=== PATIENT | male | born 1940 | race Caucasian/White ===

== ENCOUNTER 2017-04-15 18:10 | Observation (INO) | payer MEDICARE, OTHER ==
[~2017-04-15] VITALS: Ht 182.9 cm; Wt 81.3 kg
--- NOTE | 2017-04-15 18:16 | ED.REPORT ---
HPI-Chest Pain 40 and Over Date of Service Apr 15, 2017 ED Provider: Dr. Willy Guo The patient is a 76 year old male who presents to the ED due to a droopy left face, tingling and numbness down his left arm four days ago. Yesterday, he had chest pain, and states that the sensation was muscular. Today, he had difficulty walking due to pain in between his shoulder blades. Pt received 4 doses of nitro en route with reduction in pain from 8/10 to 3/10. Today he had trouble walking due to "soreness" in between his shoulder blades. Significant hx includes pacer in 2007, replaced 2015 for bradycardia. BP is 126/74 Nursing Notes Stated Complaint: CHEST PAIN Nursing Notes Reviewed: Yes Allergies: Coded Allergies: Penicillins (Unverified Allergy, Unknown, 04/15/17) Uncoded Allergies: PCN (Allergy, Unknown, 04/15/17) General Time Seen by MD: 18:15 Chief Complaint Other (left facial droop) Hx Obtained From: Patient Arrived By: Walk-in Sudden in Onset?: Yes Onset Occurred: 4 days ago Context of Onset: Light exertion Symptom Duration: Since onset Location: : Substernal Quality: Painful Radiation: : Arm left Severity: Current: No pain currently Severity: Maximum: Mild Recent Healthcare: No recent doctor visit, No recent hospitalization Similar Sx Previous: No Past Medical History Past Surgical History pacer in 2007 replaced 2016 for bradycardia Smoking History Unknown if Ever Smoker Social History Other Social History: Local resident Ambulatory Status Independent Review of Systems Constitutional: Denies: Chills, Fever Musculoskeletal: Reports: Back pain, Extremity pain Neurologic: Reports: Numbness, Problem walking, Denies: Change LOC Complete sys rev & neg: except as marked. Physical Exam Initial Vital Signs Vital Signs (First) Date Time Temp Pulse Resp B/P Pulse Ox O2 Delivery O2 Flow Rate FiO2 04/15/17 18:22 36.7 70 18 126/74 98 Room Air Initial VS: Reviewed General/Constitutional: Awake, Alert, No acute distress, Cooperative, Not toxic appearing Respiratory / Chest: Atraumatic, Breath sounds NL, Breath sounds = bilat, No respiratory distress Cardiovascular: No gallop, No murmurs, No rubs atrial paced Abdomen: Atraumatic, Soft, Non-tender Lower Extremity / Pelvis / MS: Atraumatic, Inspection NL, Full range of motion , No deformity Skin: Atraumatic, Color NL, No rash Head / Eyes: Atraumatic, Normocephalic, PERRL Upper Extremity / MS: Atraumatic, Inspection NL, Full range of motion, No deformity Wrist / Hand: Atraumatic, Inspection NL, Full range of motion, No deformity Ankle / Foot: Atraumatic, Inspection NL, Full range of motion, No deformity Interpretation & Diagnostics Interpretation & Diagnostics: ANGIOGRAPHY CT IMPRESSION: 1. Acute disease is not identified. 2. No pulmonary embolus, lung infiltrate or effusion, or aneurysm or dissection of the aorta is identified. 3. There is a 4.4 mm nodule in the anteroinferior aspect of the right lower lobe. Followup should be according to Fleischner criteria. The Fleischner Society criteria for SOLID lung nodule followup are: Nodule size (mm)Low-risk patientHigh-risk [id number] follow-up neededFollow-up at 12 mo; if no change, no further follow-up>[id number] CT at 12 mo; if no change, no further follow-up needed.Initial follow-up CT at 6-12 mo, then 18-24 mo if no change. >6-8Initial follow-up CT at 6-12 mo, then 18-24 mo if no change. Initial follow-up CT at 3-6 mo, then 9-12 mo and 24 mo if no change. >8Follow-up CT at 3, 9, 24 mo. Or PET and/or biopsy.Same as for low-risk pts. Dictated by: Freddy David M.D. on 04/15/2017 at 20:30 Approved by: Freddy David M.D. on 04/15/2017 at 20:36 Lab Results Interpretation Result Diagram: 04/15/17 1842 04/15/17 1842 Test 04/15/17 18:42 04/15/17 21:12 White Blood Count 7.4th/mm3 (3.8-10.1) Red Blood Count 3.65mil/mm3 (4.40-5.80) Hemoglobin 12.4g/dL (13.8-17.2) Hematocrit 36.4% (41.0-50.0) Mean Corpuscular Volume 99.7fL (81-100) Mean Corpuscular Hemoglobin 34.0pg (27.0-35.0) Mean Corpuscular Hemoglobin Concent 34.1% (32.0-37.0) Red Cell Distribution Width 11.5% (12.3-15.4) Platelet Count 187bil/L (150-400) Neutrophils (%) (Auto) 72.6% (40-74) Lymphocytes (%) (Auto) 15.0% (14-46) Monocytes (%) (Auto) 11.5% (4-12) Eosinophils (%) (Auto) 0.3% (0-5) Basophils (%) (Auto) 0.3% (0-3) Prothrombin Time 11.9sec (8.1-12.5) Prothromb Time International Ratio 1.11ratio D-Dimer 1.16mg/L FEU (<0.50) Sodium Level 139mEq/L (134-144) Potassium Level 4.0mEq/L (3.5-5.2) Chloride Level 102mEq/L (97-108) Carbon Dioxide Level 20mmol/L (18-29) Blood Urea Nitrogen 22mg/dL (8-27) Creatinine 0.84mg/dL (0.76-1.27) Estimat Glomerular Filtration Rate 94mL/min (>59) Glucose Level 87mg/dL (60-99) Calcium Level 8.9mg/dL (8.5-10.1) Magnesium Level 1.8mg/dL (1.6-2.6) Total Bilirubin 0.8mg/dL (0.0-1.2) Aspartate Amino Transf (AST/SGOT) 37U/L (0-50) Alanine Aminotransferase (ALT/SGPT) 39U/L (0-44) Alkaline Phosphatase 72U/L (25-160) Pro-B-Type Natriuretic Peptide 274.5pg/mL (0-486) Total Protein 6.8g/dL (6.4-8.4) Albumin 3.4g/dL (3.4-5.0) Thyroid Stimulating Hormone (TSH) 1.800uIU/mL (0.450-4.500) Hold Katz Top Tube Received (Received) Troponin T 0.013ug/L (0.0-0.011) Lab Results Interpretation: Initial Troponin 0.011 2nd Troponin 0.013 ECG Interpretation ECG Interpretation: atrial paced (rate 70) no ST elevation [place] no depression Interpreted by: ED physician X-Ray Chest Interpretation Chest Xray Interpretation: IMPRESSION: Acute disease is not seen in the upright portable chest. Dictated by: Freddy David M.D. on 04/15/2017 at 18:49 Approved by: Freddy David M.D. on 04/15/2017 at 18:50 View: Portable Interpretation / Wet Read by: Interpret - Radiologist CT Head Interpretation IMPRESSION: No abnormality is noted intracranially. Mucosal thickening and mucous is present in the left maxillary sinus. Dictated by: Freddy David M.D. on 04/15/2017 at 19:30 Approved by: Freddy David M.D. on 04/15/2017 at 19:33 Re-Eval/Medical Decision Med Decision/Clinical Course 1930: Pt is still having pain. IV changed to AC. Plan for pain medicine and nitrates. 2100: Plan for admission, heparin, and stress test. 2148: Consultation with Dr. Menendez. Troponin is creeping up (0.011 to 0.013) Dx of unstable angina. Pain adequately treated with nitrates and analgesia. Troponin is trending up. Time of Eval: 19:31 Patient Status: Condition unchanged Re-Evaluation/Progress Note: Per nurse, pt is still having pain. IV changed to AC. Plan for pain medicine and nitrates. Time of Eval: 21:00 Re-Evaluation/Progress Note: Pt rechecked. Informed pt of negative CT and x-ray. Plan for admission, heparin, and stress test. Consultation : Referral / Consult Name: Saji Menendez MD Consulted With: Hospitalist Call Returned at: 21:49 Soc Analyst: Agrees with eval, Agrees with plan Note: Case discussed. Counseled Regarding: Diagnosis, Lab results, Need for admission Discharge & Departure Primary Impression: Unstable angina Disposition: ADMITTED TO HOSPITAL Discharge Condition All VS Reviewed: Yes Condition: Stable Referrals: [facility] Except Billable Proc Time Spent: 30-74 minutes (33) Services Performed: Patient management by me, Time spent at bedside, Reviewing test results, Reviewing imaging, Discussing patient care, Documentation in record Scribe Attestation Portion of this note were transcribed by Fernanda Ross. I, Dr. Guo, personally performed the history, physical exam, and medical decision-making: I reviewed and confirmed the accuracy for the information in the transcribed note. Signed by: ashlie Lawton, 04/15/17 2200 copies to: [facility] Willy Guo DO Apr 15, 2017 18:15 Fernanda Ross Apr 15, 2017 18:56
[2017-04-15 18:22] VITALS: BP 126/74; PULSE 70; RESP 18; O2SAT 98
[2017-04-15 18:48] LABS: BASOPHILS % (AUTO) 0.3 % (0-3); EOSINOPHILS % (AUTO) 0.3 % (0-5); MONOCYTES % (AUTO) 11.5 % (4-12); Mean Corpuscular Volume 99.7 fL (81-100); NEUTROPHILS % (AUTO) 72.6 % (40-74); Platelet Count 187 bil/L (150-400)
--- NOTE | 2017-04-15 18:52 | DRSVH ---
PROCEDURE: X-RAY CHEST ONE VIEW, PORTABLE ([id number]) INDICATIONS: chest pain TECHNIQUE: One view of the chest was acquired. COMPARISON: [facility], , CHEST 2 VIEW, 11/08/2010, 14:50. FINDINGS: Surgical changes and devices: Triple lead pacemaker is present from the right side and cardiac monito r leads are seen over the chest. Lungs and pleura: No pleural effusions or pneumothorax. Lungs are clear. Mediastinum: Mediastinal contours appear normal. The aorta is elongated. Heart size is normal. Bones and chest wall: No suspicious bony lesions. Overlying soft tissues appear unremarkable. IMPRESSION: Acute disease is not seen in the upright portable chest. Dictated by: Freddy David M.D. on 04/15/2017 at 18:49 Approved by: Freddy David M.D. on 04/15/2017 at 18:50
[2017-04-15 19:07] LABS: INR 1.11 ratio
[2017-04-15 19:12] LABS: TROPONIN T 0.011 ug/L (0.0-0.011)
[2017-04-15 19:23] LABS: Magnesium 1.8 mg/dL (1.6-2.6)
[2017-04-15] MEDS ORDERED: Nitroglycerin 2% 1 Gm Ointment TOPICAL ONE (19:30)
[2017-04-15] MEDS ORDERED: fentaNYL-PF 50 mCg/mL 2 mL Inj IVPUSH ONE (19:30)
--- NOTE | 2017-04-15 19:35 | DRSVH ---
PROCEDURE: CT BRAIN WITHOUT CONTRAST ([id number]) INDICATIONS: left facial droop, left arm weak TECHNIQUE: Noncontrast 4.5 mm thick angled axial sections acquired from the foramen magnum to the vertex, with c oronal reformats. COMPARISON: None. FINDINGS: Image quality: Excellent. CSF spaces: Basal cisterns are patent. No extra-axial fluid collections. The ventricles are symmet rachael in size and shape. Brain: No intracranial bleeds or masses. There is cerebral volume loss for age, with resultant vent ricular and sulcal prominence. There are periventricular and deep white matter chronic small vessel ischemic changes. There is intracranial internal carotid artery atherosclerosis. Skull and face: Calvarium and visualized facial bones appear intact, without suspicious lesions. Sinuses: Visualized sinuses and mastoids are clear except for moderate mucosal thickening and mucous in the left maxillary sinus.. IMPRESSION: No abnormality is noted intracranially. Mucosal thickening and mucous is present in the left maxillary sinus. Dictated by: Freddy David M.D. on 04/15/2017 at 19:30 Approved by: Freddy David M.D. on 04/15/2017 at 19:33
[2017-04-15 20:00] VITALS: BP 126/77; PULSE 70; RESP 9; O2SAT 98
--- NOTE | 2017-04-15 20:38 | DRSVH ---
PROCEDURE: CT ANGIO CHEST PULMONARY EMBOLISM ([id number]) INDICATIONS: chest pain, short of breath TECHNIQUE: After the administration of intravenous contrast, 2 mm thick sections acquired from the pulmonary api tai to the posterior costophrenic angles. 3-dimensional maximum intensity projection (MIP) coronal a nd sagittal reformats were then acquired through the thorax. For radiation dose reduction, the follo wing was used: automated exposure control, adjustment of mA and/or kV according to patient size. COMPARISON: [facility], CR, XR CHEST 1VW (PORTABLE), 04/15/2017, 18:13. FINDINGS: Image quality: Excellent. Pulmonary arteries: Pulmonary arteries are normal in size, and demonstrate no intraluminal filling d efects to suggest central pulmonary embolism. Lungs and pleura: Lungs are clear. No pleural effusions or pneumothorax. Central and peripheral ai rways are patent. There is a 4 mm nodule anteroinferiorly in the right lower lobe seen on series 5 im age 35. Lungs are otherwise clear. Mediastinum: Heart size is normal, without pericardial effusion. No mediastinal or hilar adenopathy . Thoracic aorta is normal in caliber and enhancement. Esophagus is normal in caliber, without hiat al hernia. Bones and chest wall: No suspicious bony lesions. Ribs and thoracic spine appear intact throughout. Thyroid gland is within normal limits. No axillary or supraclavicular adenopathy. Abdomen: Visualized upper abdominal solid organs appear normal in the early arterial phase of enhanc ement. IMPRESSION: 1. Acute disease is not identified. 2. No pulmonary embolus, lung infiltrate or effusion, or aneurysm or dissection of the aorta is ident ified. 3. There is a 4.4 mm nodule in the anteroinferior aspect of the right lower lobe. Followup should be according to Fleischner criteria. The Fleischner Society criteria for SOLID lung nodule followup are: Nodule size (mm)Low-risk patientHigh-risk [id number] follow-up neededFollow-up at 12 mo; if no parker e, no further follow-up>[id number] CT at 12 mo; if no change, no further follow-up needed.Initial f ollow-up CT at 6-12 mo, then 18-24 mo if no change. >6-8Initial follow-up CT at 6-12 mo, then 18-24 mo if no change. Initial follow-up CT at 3-6 mo, then 9-12 mo and 24 mo if no change. >8Follow-up CT at 3, 9, 24 mo. Or PET and/or biopsy.Same as for low-risk pts. Dictated by: Freddy David M.D. on 04/15/2017 at 20:30 Approved by: Freddy David M.D. on 04/15/2017 at 20:36
[2017-04-15] MEDS ORDERED: Heparin 5,000 Unit/mL Inj IVPUSH PRN ×2 (20:55→22:05)
[2017-04-15] MEDS ORDERED: Heparin 25K Unit/500mL 0.45 NS 25,000 UNIT in IV Premix 1 EACH IV SCH ×2 (20:55→22:05)
[2017-04-15] MEDS ORDERED: Heparin 5,000 Unit/mL Inj IVPUSH ONE (20:55)
[2017-04-15] MEDS ORDERED: Polyethylene Glycol (PEG) 17 Gm Powder PO PRN (21:45)
[2017-04-15] MEDS ORDERED: Atropine 1 mg/10 mL (Code) Syringe IVPUSH PRN (21:45)
[2017-04-15] MEDS ORDERED: Alum-Mag Hydrox-Simeth 30 mL Suspension PO PRN (21:45)
[2017-04-15] MEDS ORDERED: Ondansetron 2 mg/mL 2 mL Inj IVPUSH PRN (21:45)
[2017-04-15] MEDS ORDERED: Senna-Docusate 8.6-50 mg Tablet PO PRN (21:45)
[2017-04-15] MEDS ORDERED: HYDROcodone-APAP 5-325 mg Tablet PO PRN (22:10)
--- NOTE | 2017-04-15 22:36 | PCM.HPMED ---
Subjective Date of Service Apr 15, 2017 Primary Provider: Admitting Physician: Saji Menendez MD Primary Care Physician: Jane Watts Attending Physician: Saji Menendez MD Chief Complaint: CP History of Present Illness: 76 yo M with history of SSS s/p pacemaker presents today for dull substernal CP that radiates to his left arm and also sharp pain between his scapula x 3 days. Patient reports that he was out doing yard work when he noted the pain, this occurred for about 2-3 minutes and then went away with rest. He states he went to the and ED, but the wait was too long so he went home. Pt reports that the pain occurred again the following day when he was out working in the yard, but was more brief. He also had an episode later that night that was associated with diaphoresis but was also very brief. He came into the ED today again due to increasing radiation of his symptoms to his left forearm and also his left jaw and also increasing pain between his scapula which she describes as more sharp and more likely related to his hard labor. Throughout these episodes he denies any associated nausea, vomiting, shortness of breath, OVIEDO, headache, lethargy, or dizziness. He does endorse some bloating and constipation but has not noted any abdominal pain. He has had a mild chronic cough which occasionally does worsen the pain in his scapula. He has never had chest pain like this before and denies any orthopnea, PND, or history of ZHOU. En route to the ED today, he had a full dose of Aspirin and 4 doses of nitro SL that did improve his dull substernal CP. His pi/senior research associate is Dr. Ernestina Preciado at [place] In the ED, he was noted to have stable, normal vital signs Initial EKG showed atrial paced rhythm with rate of [address] changes As initial CBC and CMP were benign and initial troponin was 0.011 which did increase to 0.013 about 4 hours later He had a brain CT that did not show any acute disease and a CTA which did not show any pulmonary emboli but did show a right lower lobe nodule With his rising troponins and suspicious presentation, heparin drip started in the ED and is admitted for further observation and workup Review of Systems: Comprehensive review of systems was conducted with the patient and found to be negative except as noted above in HPI. Allergies Coded Allergies: Penicillins (Unverified Allergy, Unknown, 04/15/17) Uncoded Allergies: PCN (Allergy, Unknown, 04/15/17) Home Medications asa 81 mag 250mg daily ibuprofen prn pantoprazole PMH Inguinal hernia SSS s/p pacemaker BPH Surgical History Pacemaker for SSS- 2007, then 2016. Cardiology is Ernestina Kramer in [place] Right inguinal hernia repaired 2016, left inguinal hernia in a long time ago. Anal spincterotomy turp cystoscopy 2010 colonoscopy yearly for polyps? 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 External ears without defect. PERRLA, EOMI Anicteric sclerae, moist conjunctivae, and no lid lag. Oropharynx free of erythema and cobble stoning with moist mucosa. Neck: Supple with full range of motion. No jugular venous distension noted Cardiovascular: Regular rate and rhythm soft systolic murmur, pacemaker at right upper chest Pulmonary: Mild rales noted on the right lower lobe, no crackles, wheezes, or rhonchi. Normal respiratory effort with no use of accessory muscles. Abdomen: Bowel tones present. Soft, nontender, nondistended. No hepatosplenomegaly or masses appreciated. MSK: No clubbing, cyanosis, edema, or lymphadenopathy appreciated. Cervical and thoracic paraspinal muscles mildly tender to palpation Skin: Normal temperature, turgor, and texture; no rash, ulcers, or subcutaneous nodules appreciated. Neurological: Cranial nerves grossly intact. Normal muscle strength, tone, and bulk. Reflexes, coordination, and sensory function within normal limits. Face symmetric Psychiatric: Normal mood and affect. Alert and oriented to person, place, and time. Pleasant and cooperative Lab and Diagnostics Result Diagram: 04/15/17 1842 04/15/171841 X-Rays, CTs and MRIs PROCEDURE: CT ANGIO CHEST PULMONARY EMBOLISM ([id number]) IMPRESSION: 1. Acute disease is not identified. 2. No pulmonary embolus, lung infiltrate or effusion, or aneurysm or dissection of the aorta is identified. 3. There is a 4.4 mm nodule in the anteroinferior aspect of the right lower lobe. Followup should be according to Fleischner criteria. The Fleischner Society criteria for SOLID lung nodule followup are: PROCEDURE: CT BRAIN WITHOUT CONTRAST ([id number]) IMPRESSION: No abnormality is noted intracranially. Mucosal thickening and mucous is present in the left maxillary sinus. PROCEDURE: X-RAY CHEST ONE VIEW, PORTABLE ([id number]) IMPRESSION: Acute disease is not seen in the upright portable chest. 12-lead ECG ECG Interpretation: atrial paced (rate 70) no ST elevation [place] no depression Interpreted by: ED physician Assessment & Plan 76 yo M with history of SSS s/p pacemaker presents today for dull substernal CP that radiates to his left arm and also sharp pain between his scapula x 3 days. Chest pain, POA Patient's presentation is suspicious for unstable angina versus NSTEMI. There appears to be a MSK component involved too, which is noted by his upper back pain between the scapula. EKG on admission showed atrial pacing at rate of [address] changes. Full dose aspirin and nitroglycerin given prior to admission We will place on telemetry for CV monitoring We will plan to trend troponins, which has slowly risen to 0.013 on admission We will continue patient's heparin drip Nitroglycerin sublingual and morphine prn chest pain Echo in the a.m. Exercise stress test planned Consider cardiology consultation Sick sinus syndrome status post pacemaker, POA Triple lead noted on chest x-ray. Rate has been stable We will continue baby aspirin daily Incidental lung nodule, POA As noted on CTA, 4.4 mm right lower lobe lung nodule Patient denies any history of lung nodules. Discussed with patient need to continue monitoring this on an outpatient basis Chronic GERD, POA We will continue his pantoprazole Tylenol as needed for fever/pain Zofran as needed for nausea Bowel regimen as needed for constipation CODE STATUS: Full resuscitation Patient is admitted under observation status with expected length of stay less than 2 midnights due to severity of presenting symptoms, risk of adverse event, and complexity of treatment plan. Pain Evaluation: Adequate Pain Control VTE Prophylaxis: Other (heparin drip) Resuscitation Status: CPR: Attempt Resuscitation Attending Statement The patient was seen and examined together with Dr. Topete on 04/15 and I agree with the history, exam and plan as outlined in the note above. Eugenio Topete DO Apr 15, 2017 21:31 Saji Menendez MD Apr 16, 2017 03:02
[2017-04-16] MEDS: Sodium Chloride LOK Flush 10 mL Syringe IVFLUSH SCH ×3 (00:30→16:52)
[2017-04-16] MEDS: 0.9% Sodium Chloride 1,000 ML IV SCH ×2 (01:03→10:14)
[2017-04-16 01:14] VITALS: BP 110/59; PULSE 70; RESP 18; O2SAT 98
[2017-04-16 01:45] VITALS: BP 111/69; PULSE 70; RESP 16; O2SAT 95
[2017-04-16] MEDS ORDERED: LORA10CA9 PO (03:10)
[2017-04-16] MEDS ORDERED: NPR500T PO (03:10)
[2017-04-16] MEDS ORDERED: ASPI-973 PO (03:10)
[2017-04-16] MEDS ORDERED: NITR0.4T6 SL (03:10)
[2017-04-16] MEDS ORDERED: IBUP100T7 PO (03:10)
[2017-04-16] MEDS ORDERED: CHOL100043 PO (03:10)
[2017-04-16] MEDS ORDERED: KEN1O TOP (03:10)
[2017-04-16] MEDS ORDERED: OMEP20CA11 PO (03:10)
[2017-04-16] MEDS ORDERED: FLUT9.9S16 NS (03:10)
[2017-04-16] MEDS ORDERED: MULT-666 PO (03:10)
[2017-04-16] MEDS ORDERED: CYAN500 PO (03:10)
[2017-04-16] MEDS ORDERED: CALC500T9 PO (03:10)
[2017-04-16] MEDS ORDERED: MAGN250T29 PO (03:10)
[2017-04-16] MEDS ORDERED: OMEG-38 PO (03:10)
[2017-04-16 04:36] LABS: Mean Corpuscular Hemoglobin 34.2 pg (27.0-35.0); Mean Corpuscular Volume 101.2 fL (81-100); Platelet Count 184 bil/L (150-400)
[2017-04-16 04:37] LABS: BASOPHILS % (AUTO) 0.3 % (0-3); MONOCYTES % (AUTO) 14.6 % (4-12); NEUTROPHILS % (AUTO) 62.6 % (40-74)
[2017-04-16 05:32] VITALS: PULSE 70
--- NOTE | 2017-04-16 06:18 | NUR ---
Admit Admitted to 1009 from ED. Able to ambulate on arrival without any noted issues. Tele APaced w/o c/o CP or discomfort. RA w/o SOB. Denies n/v or issues with PO intake prior to admit but currently NPO per orders. Voiding per urinal with urinary retention at times only noted issues. Heparin gtt initiated in ED infusing on arrival. NS initiated on arrival to floor per MD orders. Personal belongings at bedside per patient request. 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
[2017-04-16 08:00] VITALS: PULSE 70
[2017-04-16 10:00] VITALS: BP 115/65; PULSE 77; RESP 19; O2SAT 99
--- NOTE | 2017-04-16 12:41 | NUR ---
Social Work: Initial Assessment/Readiness for Discharge/Multi-Disciplinary Rounds D: EMR reviewed. Please see initial assessment linked to this note for additional details. Pt does not have a re-admit risk score assigned. Pt is a 76 y/o male admitted inpatient for left hip arthritis per H&P. HERO met with pt and spouse at bedside to conduct initial assessment. Pt was alert and oriented x3. SW explained role and wrote phone number on [employer]. SW provided "Your Discharge Planning Checklist" and encouraged pt to contact SW for any discharge planning needs that may arise after review of checklist. Pt has Medicare and . Pt's PCP is DIYA Lara Aas. Pt stated his son will provide transport home via POV or he may need to wait until 1700 for his daughter to pick him up - either way, pt will have transportation home and thinks his son will be able to pick him up. Per rounds, if pt's stress test is negative, pt will be medically stable for discharge today. Pt is independent with all ADLS and self-care at baseline. Pt drives. Pt does not own or use any DME. Pt lives a single-story home with 1 step to enter. Pt's capacity for self-care assessed - no concerns identified. Pt's son or daughter will provide transport home via POV today. A: Pt who is independent at baseline. Pt's capacity for self-care assessed - no concerns identified. P: Pt likely to discharge home with son or daughter via POV today. SW does not anticipate any further needs at discharge but will continue to follow for needs that may arise. GERMAN Billings Addendum: 04/16/17 at 1247 by SHORTY HAYNES Amended: Links added.
--- NOTE | 2017-04-16 15:59 | PCM.PNMED ---
Subjective Date of Service Apr 16, 2017 Subjective Patient reports some improvement with the chest pain however he still has the back pain radiating to his chest. This pain is reproducible with movement. Denies any cough or shortness of breath. Stress test today. Exam Vital Signs Vital Sign - Last Date Time Temp Pulse Resp B/P Pulse Ox O2 Delivery O2 Flow Rate FiO2 04/16/17 10:00 36.9 77 19 115/65 99 Room Air Intake and Output 04/15/17 04/15/17 04/16/17 Cumulative From/Thru 15:00 23:00 07:00 04/15/17 18:22 - 04/16/17 06:09 Intake Total 491 ml 491 ml Output Total 900 ml 900 ml Balance -409 ml -409 ml Intake Oral 0 ml 0 ml IV Total 491 ml 491 ml Output Urine Total 900 ml 900 ml # Bowel Movements 0 0 Exam General: Well-developed male who appears in no acute distress HEENT: Normocephalic, atraumatic. External ears without defect. PERRLA, EOMI Anicteric sclerae, moist conjunctivae, and no lid lag. Oropharynx free of erythema and cobble stoning with moist mucosa. Neck: Supple with full range of motion. No jugular venous distension noted Cardiovascular: Regular rate and rhythm soft systolic murmur, pacemaker at right upper chest Pulmonary: Mild rales noted on the right lower lobe, no crackles, wheezes, or rhonchi. Normal respiratory effort with no use of accessory muscles. Abdomen: Bowel tones present. Soft, nontender, nondistended. No hepatosplenomegaly or masses appreciated. MSK: No clubbing, cyanosis, edema, or lymphadenopathy appreciated. Cervical and thoracic paraspinal muscles mildly tender to palpation Skin: Normal temperature, turgor, and texture; no rash, ulcers, or subcutaneous nodules appreciated. Neurological: Cranial nerves grossly intact. Normal muscle strength, tone, and bulk. Reflexes, coordination, and sensory function within normal limits. Face symmetric Psychiatric: Normal mood and affect. Alert and oriented to person, place, and time. Pleasant and cooperative IVs and Medications Medications Reviewed: Medications were reviewed in detail Lab and Diagnostics Result Diagram: 04/16/17 0400 04/16/17 0400 X-Rays, CTs and MRIs PROCEDURE: CT ANGIO CHEST PULMONARY EMBOLISM ([id number]) IMPRESSION: 1. Acute disease is not identified. 2. No pulmonary embolus, lung infiltrate or effusion, or aneurysm or dissection of the aorta is identified. 3. There is a 4.4 mm nodule in the anteroinferior aspect of the right lower lobe. Followup should be according to Fleischner criteria. The Fleischner Society criteria for SOLID lung nodule followup are: PROCEDURE: CT BRAIN WITHOUT CONTRAST ([id number]) IMPRESSION: No abnormality is noted intracranially. Mucosal thickening and mucous is present in the left maxillary sinus. PROCEDURE: X-RAY CHEST ONE VIEW, PORTABLE ([id number]) IMPRESSION: Acute disease is not seen in the upright portable chest. 12-lead ECG ECG Interpretation: atrial paced (rate 70) no ST elevation DC no depression Interpreted by: ED physician Cardiac Echo Impressions 04/16 echo-pending Assessment & Plan 76 yo M with history of SSS s/p pacemaker presents today for dull substernal CP that radiates to his left arm and also sharp pain between his scapula x 3 days. #Chest pain, POA, active- patient does have a cardiac history including pacemaker. Suspicion for angina. Musculoskeletal skeletal injury is more likely given patient's reproducible pain on back that radiates to chest. 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 Patient does have a history of spinal disease. Given history rule out acute coronary syndrome. EKG on admission showed HO pacing at a rate of [address] changes. In the ED patient was given 325 mg aspirin and nitroglycerin. -Troponins were trended and peaked was 0.013. -Patient's heparin infusion was discontinued as troponin peak was only 0.013. We will treat with medical management including aspirin beta edgar and statin. - Nitroglycerin sublingual and morphine prn chest pain -Continue with NSAIDs for inflammatory control for muscular skeletal pain. - Echo pending - Exercise stress test pending - If stress tests is abnormal will consider cardiology consult. #Degenerative disc disease of spine- per patient has had herniated disc, unclear if some lumbar or thoracic. No deficits or neurological exam no tenderness to palpation over spine. Patient can follow-up with PCP. Should continue with NSAIDs for pain. #Sick sinus syndrome status post pacemaker, POA -Triple lead noted on chest x-ray. Rate has been stable. No indication to interrogate. -Continue cardiac monitoring #Incidental lung nodule, POA As noted on CTA, 4.4 mm right lower lobe lung nodule. Per Fleischner criteria patient should get repeat CT of the chest in 6-12 months. Patient denies any history of lung nodules. #Chronic GERD, POA We will continue his pantoprazole Tylenol as needed for fever/pain Zofran as needed for nausea Bowel regimen as needed for constipation CODE STATUS: Full resuscitation Patient is admitted under observation status with expected length of stay less than 2 midnights due to severity of presenting symptoms, risk of adverse event, and complexity of treatment plan VTE Prophylaxis: Other (heparin drip) Resuscitation Status: CPR: Attempt Resuscitation Mitch Akhtar MD Apr 16, 2017 15:59
--- NOTE | 2017-04-16 16:12 | DRSVH ---
[facility] [address] [place] [address] Echocardiogram Report Name: DESIRAE QUINTANA DStudy Date : 04/16/2017 Height: 72 in Hospital Exam Location: [facility] Weight: 179 lb Gender: Male BSA: 2.0 m2 : 1940 Age: 76 yrs BP: 111/69 mmHg Reason For Study: Chest pain Ordering Physician: Performed By: Chichi Ruiz Referring Physician: Jane Watts Interpretation Summary The left ventricle is normal in size. The ejection fraction is estimated to be 55-60%. The right ventricle is mildly dilated. The right ventricular systolic function is normal. There is a pacemaker lead in the right ventricle. There is mild to moderate mitral regurgitation. There is mild to moderate tricuspid regurgitation. Right ventricular systolic pressure is estimated to be 22 mmHg plus the clinically estimated CVP which cannot be estimated on this exam. Procedure: A two-dimensional transthoracic echocardiogram with color flow and Doppler was performed. The study quality was technically adequate. There is no prior echocardiogram noted for this patient. The patient was in normal sinus rhythm during the exam. Left Ventricle: The left ventricle is normal in size. Proximal septal thickening is noted. There is no echo evidence for significant left ventricular outflow tract obstruction. There is no thrombus. A false chord is noted (normal variant). The ejection fraction is estimated to be 55-60%. There are no obvious focal wall motion abnormalities noted but poor endocardial definition reduces the sensitivity for the detection of such. The E/A ratio is reversed, suggesting impaired early relaxation of the left ventricle or a reduced preload state. Right Ventricle: There is a pacemaker lead in the right ventricle. The right ventricle is mildly dilated. A calcified moderator band is seen in the right ventricle. The right ventricular systolic function is normal. Atria: The left atrial size is normal. The right atrium is mild to moderately dilated. There is no Doppler evidence for an interatrial shunt. Mitral Valve: There is mild mitral annular calcification. The mitral valve leaflets are mildly calcified. The mitral valve chordae are thickened and/or calcified. There is mild to moderate mitral regurgitation. Aortic Valve: There is mild aortic valve sclerosis. The aortic valve is trileaflet. The aortic valve opens well. There is no aortic valve stenosis. There is trace aortic regurgitation. Tricuspid Valve: The tricuspid valve is not well visualized, but is grossly normal. There is mild to moderate tricuspid regurgitation. Right ventricular systolic pressure is estimated to be 22 mmHg plus the clinically estimated CVP which cannot be estimated on this exam. Pulmonic Valve: The pulmonic valve leaflets are thin and pliable; valve motion is normal. There is mild to moderate pulmonic regurgitation. Great Vessels: The aortic root is normal size. The ascending aorta is normal in size. The aortic arch is mildly enlarged. The pulmonary artery is normal size. The IVC has a measurement of 12 mm. Pericardium/ Pleura There is no pericardial effusion. MMode/2D Measurements & Calculations LVIDd: 4.4 cm RA long axis LVOT diam: 2.4 cm LVIDs: 3.7 cm LA A2 area: 18.1 cm AoV Opening FS: 16.1 % LA A4 area: 19.7 cm RA area EPSS: 0.69 cm LA length (vol) Ao root diam IVSd: 1.5 cm : 21.9 cm LVPWd: 1.1 cm LA vol: 65.4 ml RA vol Aortic Jxn: 2.9 cm LA vol index : 82.2 ml asc Aorta Diam RA : 40.5 mm2 Ao Arch Diam (Prox IVC diam: 1.2 cm Trans): 3.6 cm LV sousa. diameter/BSA LV sys. diameter/BSA RVD1 (basal) TAPSE: 2.3 cm (cm/m^2): 2.2 (cm/m^2): 1.8 Doppler Measurements & Calculations Ao V2 max MV E max jose MV E/A: 0.72 TR max jose : 137.9 cm/sec : 58.5 cm/sec Med Peak E' Jose : 236.5 cm/sec Ao max PG MV A max jose TR max PG : 7.6 mmHg : 81.7 cm/sec E/E' med: 9.7 : 22.4 mmHg Ao mean PG MV P1/2t: 89.1 msec Lat Peak E' Jose PA V2 max : 75.0 cm/sec LVOT Max Jose E/E' lat: 7.0 PA mean PG : 92.1 cm/sec E/e' average: 8.3 PA Accel Time NATY(I,D): 3.3 cm : 0.09 sec sev ratio MV dec time MV P1/2t max jose Ao V2 mean LV V1 max PG : 0.30 sec : 96.3 cm/sec MVA(P1/2t): 2.5 cm2 Ao V2 VTI: 27.8 cm LV V1 VTI NATY(V,D): 2.9 cm2 : 20.7 cm PA V2 mean NATY indexed to BSA : 52.2 cm/sec (cm^2/m^2): 1.6 Reading Physician:PM
--- NOTE | 2017-04-16 17:35 | PCM.DIMED ---
Discharge Instructions Date of Service Apr 16, 2017 Dates of Hospitalization Apr 15, 2017 at 21:25 Discharge Diagnosis Discharge Diagnosis #Chest pain, POA, active- #Degenerative disc disease of spine- #Sick sinus syndrome status post pacemaker, POA #Incidental lung nodule, POA #Chronic GERD, POA Test Results Test Results Echocardiogram Report Name: DESIRAE QUINTANA DStudy Date : 04/16/2017 Height: 72 in Hospital Exam Location: [facility] Weight: 179 lb Gender: Male BSA: 2.0 m2 : 1940 Age: 76 yrs BP: 111/69 mmHg Reason For Study: Chest pain Ordering Physician: Performed By: Chichi Ruiz Referring Physician: Jane Watts Interpretation Summary The left ventricle is normal in size. The ejection fraction is estimated to be 55-60%. The right ventricle is mildly dilated. The right ventricular systolic function is normal. There is a pacemaker lead in the right ventricle. There is mild to moderate mitral regurgitation. There is mild to moderate tricuspid regurgitation. Right ventricular systolic pressure is estimated to be 22 mmHg plus the clinically estimated CVP which cannot be estimated on this exam. Diet Discharge Diet: No restrictions, Heart Healthy Activity Discharge Activity: No restrictions Call your provider Call your provider for: Chest pain Patient Instructions Follow-up plan Even though your stress test negative still need follow-up with cardiology after discharge in about 1 week Mitch Akhtar MD Apr 16, 2017 17:35
[2017-04-16] MEDS ORDERED: CYCL5TAB PO (17:36)
[2017-04-16 17:38] VITALS: BP 146/88; PULSE 70; RESP 20; O2SAT 98
--- NOTE | 2017-04-16 18:26 | DRSVH ---
PROCEDURE: 1 DAY PHARMACOLOGICAL STRESS TEST INDICATIONS: CHEST PAIN. COMPARISON: None. Radiopharmaceutical: Rest dose 8.7 mCi of technetium 99m tetrofosmin Stress dose 24.9 mCi of technetium 99 tetrofosmin Patient presentation: Patient is a 76-year-old man with history of dual chamber permanent pacemaker a nd chest discomfort. FINDINGS: Pharmacologic stress test: Following informed consent Lexiscan was infused per protocol. Patient had nausea and lightheadedness. Rest EKG showed normal sinus rhythm. There were no significant ST segment changes or ectopy during stress testing. Patient required Aminophyllin to manage symptoms. Raw data: Normal myocardial tracer uptake. Lung heart ratio is grossly normal. Myocardial perfusion imaging: No ischemia or prior infarct. Quantitative gated SPECT: At peak stress ejection fraction is 71%. Rest ejection fraction is 61%. No focal wall motion abnormalities. IMPRESSION: Low risk pharmacologic stress test with myocardial perfusion imaging. No ischemia or prior infarct. Normal wall motion and left ventricular systolic function. There is no prior study available for comparison Dictated by: Teressa Laws M.D. on 04/16/2017 at 18:20 Approved by: Teressa Laws M.D. on 04/16/2017 at 18:24
--- NOTE | 2017-04-16 18:29 | NUR ---
Discharge Pt discharged to home with transportation by his son. Pt's IV dc'd intact, telemetry removed and tech notified. Pt's discharge instructions, follow up appointments, and new medications were reviewed. All questions were answered and pt voiced understanding. Pt's belongings were gathered for transportation home with pt. Pt waiting in room for son, who will arrive after 7pm.
== END 2017-04-16 20:41 | disposition home or self-care (01) ==
LOC: SED 18:10 → OSC 21:25
PROVIDERS: ADMIT Hospitalist; ATTEND Internal Medicine
DX: R07.89 Other chest pain (principal); I49.5 Sick sinus syndrome; N40.0 Benign prostatic hyperplasia without lower urinary tract symptoms; R91.8 Other nonspecific abnormal finding of lung field; R29.810 Facial weakness; R53.1 Weakness; K21.9 Gastro-esophageal reflux disease without esophagitis; Z79.82 Long term (current) use of aspirin; Z79.899 Other long term (current) drug therapy; Z95.0 Presence of cardiac pacemaker
CPT/HCPCS: 36415; 70450; 71010; 71275; 78452; 80048; 80053; 80061; 83036; 83735; 83880; 84443; 84484; 85025; 85378; 85610; 85730; 93005; 93017; 96374; 99291; A9502; C8929; G0378; J0280; J1644; J2785; J3010; J7030; Q9967